=== PATIENT | female | born 1990 | race Caucasian/White ===

== ENCOUNTER 2017-07-27 21:43 | Emergency (ER) | payer MEDICAID ==
[~2017-07-27] VITALS: Ht 157.5 cm; Wt 59.5 kg
[2017-07-27 21:45] VITALS: BP 129/84
[2017-07-27 22:46] LABS: HCG UR SG 1.019 (1.003-1.030); MICROSCOPIC AUTO
[2017-07-27 22:52] LABS: CULTURE INDICATED? YES
[2017-07-27 23:22] LABS: CLUE CELLS NONE SEEN (NONE SEEN); WET PREP WBCS MANY (FEW)
[2017-07-27] MEDS ORDERED: IBUPROFEN 800 MG TABLET ONE (23:26)
[2017-07-27] MEDS ORDERED: IBUPROFEN 200 MG TABLET PO ONE (23:30)
[2017-07-27] MEDS ORDERED: CEFTRIAXONE 250 MG ONE (23:52)
[2017-07-27] MEDS ORDERED: AZITHROMYCIN 250 MG TABLET ONE (23:53)
[2017-07-27] MEDS ORDERED: HYDROcodone/APAP 5/325 TABLET ONE (23:53)
[2017-07-28] MEDS ORDERED: HYDROcodone/APAP 5/325 TABLET PO ONE
[2017-07-28] MEDS ORDERED: CEFTRIAXONE 250 MG IM ONE
[2017-07-28] MEDS ORDERED: AZITHROMYCIN 500 MG TABLET PO ONE
== END 2017-07-28 00:15 ==
LOC: ED 23:06
DX: N30.00 Acute cystitis without hematuria (principal); N89.8 Other specified noninflammatory disorders of vagina; J45.909 Unspecified asthma, uncomplicated
CPT/HCPCS: 81001; 81025; 87086; 87210; 87491; 87591; 87808; 96372; 99284; J0696